=== PATIENT | female | born 1940 | race African-American/Black ===

== ENCOUNTER 2021-03-09 21:28 | Emergency (ER) | payer MEDICARE, OTHER ==
[~2021-03-09] VITALS: Ht 167.6 cm; Wt 67.0 kg
[2021-03-09] MEDS ORDERED: BACITRACIN ZINC OINT UDPKT TOP ONE (23:45)
[2021-03-09] MEDS ORDERED: LIDOCAINE HCL/EPINEPHRINE 1%-EPI 1:100,000 20 ML VIAL INFIL ONE (23:45)
[2021-03-09] MEDS ORDERED: TETANUS, DIPHTHERIA, PERTUSSIS VAC/PF 0.5ML (>7YR OLD) IM ONE (23:45)
[2021-03-10] MEDS ORDERED: CEPH500C2 MT (00:42)
[2021-03-10 03:48] VITALS: BP 136/64
== END 2021-03-10 03:49 | disposition home or self-care (01) ==
LOC: ER 21:28
DX: S81.812A Laceration without foreign body, left lower leg, initial encounter (principal); E11.9 Type 2 diabetes mellitus without complications; E78.00 Pure hypercholesterolemia, unspecified; I10 Essential (primary) hypertension; W45.8XXA Other foreign body or object entering through skin, initial encounter; W22.8XXA Striking against or struck by other objects, initial encounter; Y93.E3 Activity, vacuuming; Y92.018 Other place in single-family (private) house as the place of occurrence of the external cause
CPT/HCPCS: 12005; 73590; 90471; 90715; 99285; J3490

== ENCOUNTER 2021-03-14 12:02 | Emergency (ER) | payer MEDICARE ==
[~2021-03-14] VITALS: Ht 157.5 cm; Wt 66.0 kg
[~2021-03-14 12:02] MED LIST: CEPH500C2 MT
[2021-03-14] MEDS ORDERED: CEPH500C2 MT ×3 (13:53→14:02)
[2021-03-14] MEDS ORDERED: OXYC-662 MT ×3 (13:57→14:02)
[2021-03-14] MEDS ORDERED: ACET-2708 MT ×3 (13:57→14:02)
[2021-03-14] MEDS ORDERED: ACETAMINOPHEN 325MG TABLET PO ONE (14:00)
[2021-03-14 14:30] VITALS: BP 110/58
== END 2021-03-14 14:45 | disposition home or self-care (01) ==
LOC: ER 12:02
DX: S81.812D Laceration without foreign body, left lower leg, subsequent encounter (principal); X58.XXXD Exposure to other specified factors, subsequent encounter; E11.9 Type 2 diabetes mellitus without complications; E78.00 Pure hypercholesterolemia, unspecified; I10 Essential (primary) hypertension; Z79.899 Other long term (current) drug therapy
CPT/HCPCS: 99283